=== PATIENT | female | born 1955 | race Caucasian/White ===

== ENCOUNTER 2022-01-15 10:02 | Outpatient (CLI) | payer MEDICARE, BC, SELFPAY ==
--- NOTE | 2022-01-15 10:15 | CRLHL7_ITS ---
For Patients: As a result of the Century Cures Act, medical imaging exams and procedure reports are released immediately into your electronic medical record. You may view this report before your referring provider. If you have questions, please contact your health care provider. INDICATION: Dizziness and giddiness. TECHNIQUE: Brain and temporal bone MRI with contrast. The following sequences were obtained: DWI and ADC mapping sequences. Sagittal T1 weighted sequence. Axial FLAIR and HAN T2 weighted sequences of the whole brain. 3D T2-weighted CISS sequence of the temporal bones. Thin section T1 weighted axial and coronal pre-contrast and post-contrast sequences of the temporal bones. T1 weighted post-contrast sequence(s) of the whole brain. 15 cc of Dotarem gadolinium based contrast agent was used. COMPARISON : None. FINDINGS: The membranous labyrinths are normal in appearance, with no signal abnormality or malformation. No mass or pathologic enhancement within the internal auditory canals or the cerebellopontine angle cisterns. The cisternal and canalicular segments of the 7th/8th cranial nerve complexes are normal in appearance. The other imaged cranial nerve segments are normal in appearance. Brainstem and cerebellum are normal. No evidence of acute ischemia. No evidence of acute or chronic intracranial blood products. No mass or pathologic intracranial enhancement. Scattered FLAIR hyperintensities within the supratentorial white matter, typical for chronic microvascular ischemic changes. No hydrocephalus or extra-axial collections. The pituitary gland, parasellar structures and optic chiasm are normal. All the major intracranial vascular structures demonstrate normal flow-related signal. The orbital contents are normal. No calvarial or skull base marrow replacing process. No obstructive sinus disease. No extracranial soft tissue findings. IMPRESSION: 1. Normal appearance of the internal auditory pathways on high resolution imaging of the temporal bones. No mass or pathologic enhancement within the internal auditory canals or CPA cisterns. Normal appearance of the 7th/8th cranial nerves. 2. No acute infarction or other acute intracranial pathology. 3. No mass or pathologic intracranial enhancement. 4. Scattered chronic microvascular ischemic changes within the supratentorial white matter. Dictated by Zack Garces MD @ 01/15/2022 1:27:11 PM (Electronically Signed)
== END 2022-01-15 10:03 | disposition home or self-care (01) ==
LOC: MRI 10:06
PROVIDERS: Visit Provider Otolaryngology
DX: R42 Dizziness and giddiness (principal); I67.82 Cerebral ischemia
CPT/HCPCS: 70553; A9575

== ENCOUNTER 2022-08-05 10:30 | Outpatient (CLI) | payer MEDICARE, BC, SELFPAY ==
[2022-08-05 11:15] LABS: Hematocrit 43.1 % (33.0-51.0); Hemoglobin* 13.9 gm/dL (12.0-16.0); Mean Corpuscular HGB Conc 32 gm/dL (32-36); Mean Corpuscular Hemoglobin 27 pg (26-34); Mean Corpuscular Volume 84 fL (80-100); Platelet Count* 367 K/uL (140-440); Red Blood Count 5.11 m/uL (4.00-5.20); White Blood Count* 8.78 K/uL (4.50-11.00)
[2022-08-05 11:18] LABS: Slide Review Reflex No
[2022-08-05 11:26] LABS: Appearance Urine Clear (Clear); Bilirubin Urine Negative (Negative); Blood Urine Negative (Negative); Color Urine Yellow (Yellow); Glucose Urine Negative (Negative); Ketones Urine Negative (Negative); Leukocyte Esterase Urine Negative (Negative); Nitrite Urine Negative (Negative); Protein Urine Negative (Negative); Specific Gravity Urine <= 1.005 (1.000-1.030); Urobilinogen Urine 0.2 (0.2-1.0); pH Urine 6.5 (5.0-8.5)
[2022-08-05 11:30] LABS: Albumin* 4.5 g/dL (3.3-5.0); Chloride* 102 mmol/L (96-114)
[2022-08-05 11:31] LABS: Potassium* 4.4 mmol/L (3.6-5.1); Sodium* 137 mmol/L (135-149)
[2022-08-05 11:33] LABS: Alkaline Phosphatase* 69 U/L (40-150); Aspartate Amino Transferase* 22 U/L (12-35); Bilirubin Total* 0.6 mg/dL (0.1-1.5); Blood Urea Nitrogen* 11 mg/dL (7-30); Carbon Dioxide* 29 mmol/L (20-32); Cholesterol* 214 mg/dL (90-199); Creatinine* 0.6 mg/dL (0.5-1.5); Estimated Glomerular Filt Rate 99 ml/min
[2022-08-05 11:34] LABS: Alanine Aminotransferase* 26 U/L (4-35); Calcium* 8.8 mg/dL (8.4-10.6); Glucose* 128 mg/dL (60-115); HDL Cholesterol* 37 mg/dL (>=50); LDL Cholesterol Calculated 155 mg/dL (<100); Triglycerides* 109 mg/dL (40-149)
== END 2022-08-05 10:31 | disposition home or self-care (01) ==
PROVIDERS: PCP Physician Assistant Medical; Visit Provider Physician Assistant Medical
DX: I10 Essential (primary) hypertension (principal); R73.03 Prediabetes; E06.3 Autoimmune thyroiditis
CPT/HCPCS: 36415; 80053; 80061; 81003; 83036; 84439; 84443; 85027

== ENCOUNTER 2022-10-03 20:04 | Outpatient (CLI) | payer MEDICARE, BC, SELFPAY ==
--- NOTE | 2022-10-14 12:15 | W.PM.SLEEP ---
Sleep Study Details Details Interpreting Provider: Leah Date of Sleep Study: 10/03/22 Sleep Study Details: STUDY TYPE:? Home ? BMI:? 29.6 ORDERING PROVIDER:? Jorge INDICATION:? Concerns about sleep apnea ? SLEEP SUMMARY:? 519 minutes monitored RESPIRATORY SUMMARY:? AHI 16.5, supine 19.5, left lateral 10.8, right lateral 5.6 Low oxygen 78 30.3% of study oxygen less than 90% Snoring 9.1% PERIODIC LIMB MOVEMENTS OF SLEEP:? Not recorded in home study CARDIAC:? Range 59-92, mean 71.8 IMPRESSION:? Moderate obstructive sleep apnea with supine position dependency Significant desaturation more than would be expected for this level of apnea RECOMMENDATION: Either in-lab titration or AutoSet CPAP pressure 4-17. A dental appliance may be a potential option as well. Once effective therapy is established overnight oximetry study should be performed due to the patient's hypo oxygenation during this study. Further cardiopulmonary evaluation may be indicated.
== END 2022-10-03 20:05 | disposition home or self-care (01) ==
LOC: SLEEP 20:08
PROVIDERS: PCP Physician Assistant Medical; Visit Provider Physician Assistant Medical
DX: Z01.818 Encounter for other preprocedural examination (principal); E11.9 Type 2 diabetes mellitus without complications; I10 Essential (primary) hypertension; E06.3 Autoimmune thyroiditis
CPT/HCPCS: 36415; 80048; 83036; 84443; 85027; 95806

== ENCOUNTER 2022-12-24 12:50 | Outpatient (CLI) | payer MEDICARE, BC, SELFPAY ==
--- NOTE | 2022-12-24 13:00 | CRLHL7_ITS ---
For Patients: As a result of the Century Cures Act, medical imaging exams and procedure reports are released immediately into your electronic medical record. You may view this report before your referring provider. If you have questions, please contact your health care provider. INDICATION: Lung cancer screening. History of smoking. High risk patient with greater than 25 pack-year smoking history. TECHNIQUE: Low-dose lung cancer screening non-contrast CT chest. Dose reduction techniques were used. COMPARISON: None. FINDINGS: NODULES: 1.2 cm calcified nodule within the right upper lobe. Perifissural nodule right upper lobe measuring 5.8 millimeters, . 5.2 millimeter nodule left lower lobe, . LUNGS AND PLEURA: Dependent scarring bilaterally, mild. Mild emphysematous changes. MEDIASTINUM: Calcified right hilar lymph nodes. CORONARY ARTERY CALCIFICATION: Mild. LIMITED UPPER ABDOMEN: Fatty infiltration of the liver. MUSCULOSKELETAL: Normal. IMPRESSION: 5.2 millimeter noncalcified nodule left lower lobe. Additional calcified nodule within the right upper lobe considered benign. Probably calcified right perifissural nodule. LUNG-RADS CATEGORY: 2: Benign. RADIOLOGIST RECOMMENDATION: Continue annual screening with low-dose CT chest in 12 months. Please note that all CT scans at this facility use dose modulation, iterative reconstruction, and/or weight-based dosing when appropriate to reduce radiation dose to as low as reasonably achievable. Dictated by Tonio Aldana MD @ 12/25/2022 12:06:21 PM (Electronically Signed)
== END 2022-12-24 12:51 | disposition home or self-care (01) ==
LOC: CT 12:50
PROVIDERS: PCP Physician Assistant Medical; Visit Provider Physician Assistant Medical
DX: Z12.2 Encounter for screening for malignant neoplasm of respiratory organs (principal); R91.1 Solitary pulmonary nodule; Z87.891 Personal history of nicotine dependence
CPT/HCPCS: 71271

== ENCOUNTER 2023-02-27 07:50 | Day surgery (SDC) | payer MEDICARE, BC, SELFPAY ==
[2023-02-27] VITALS (14 sets, daily range): BP systolic 133–188; BP diastolic 85–106; PULSE 84–101; RESP 12–16; TEMP 36.1–36.7; O2SAT 93–99; BMI 29.8
[2023-02-27] MEDS: LACTATED RINGERS 1000 ML 1,000 ML 100 ML IV (07:55)
[2023-02-27] MEDS: OXYMETAZOLINE 0.05% NASAL SPRAY 2 SPRAY NOSTRIL-B (08:30)
[2023-02-27] MEDS: SODIUM CHLORIDE 0.9 % (FLUSH) 10 ML SYRINGE IVF (08:59)
--- NOTE | 2023-02-27 09:56 | W.ANESCHARGE ---
Anesthesia Charges Start Date/Time Anesthesia Start Date: 02/27/23 Anesthesia Start Time: 09:48 Stop Date/Time Anesthesia Stop Date: 02/27/23 Anesthesia Stop Time: 10:19
[2023-02-27] MEDS: BUPIVACAINE 0.5 %/EPI 1:200K 30 ML INJECTION (10:04)
[2023-02-27] MEDS: COCAINE HCL 4 % 4 ML SOLUTION NOSTRIL-B (10:04)
--- NOTE | 2023-02-27 10:19 | W.ANESCHARGE ---
Anesthesia Charges Start Date/Time Anesthesia Start Date: 02/27/23 Anesthesia Start Time: 09:48 Stop Date/Time Anesthesia Stop Date: 02/27/23 Anesthesia Stop Time: 10:19
[2023-02-27] MEDS: AYR SALINE NASAL GEL 1 APPLIC NOSTRIL-B ×2 (10:23)
--- NOTE | 2023-02-27 10:27 | PC.NURSE ---
IV patent and running. no complications noted.
[2023-02-27] MEDS: ACETAMINOPHEN 325 MG TABLET 650 MG PO (11:40)
[2023-02-27] MEDS: ONDANSETRON 2 MG/ML inj 4 MG IVP (11:40)
--- NOTE | 2023-02-27 12:08 | SUR.PHASEII ---
1140: Patient states pain 07/11. She would like tylenol. [employer] stated it may contain lactose. Patient verbalizes understanding and states she'll deal with it.
--- NOTE | 2023-02-27 12:17 | P.ENTPROC_ITS ---
Procedure Note Date of procedure: 02/27/23 Procedure: Preoperative diagnosis nasal obstruction, inferior turbinate hypertrophy, right middle turbinate ruth bullosa, nasal headache Postoperative diagnosis same Procedure endoscopic partial resection right middle turbinate ruth bullosa, submucous partial resection inferior turbinate bilateral Under general trach anesthesia patient was prepped and draped usual fashion nose injected and decongested. A stab incision was made in the anterior head of the right inferior turbinate a tunnel created with a [place] dissector. The ruth bone was outfractured and a conservative anterior submucous resection performed with Juan forceps. The Coblation Wand was then used to cauterize intramurally along the inferior 10%. This was repeated on the left side in identical fashion. The right middle turbinate was incised along its lateral aspect overlying the hollow portion. The bone was infractured and the turbinate crushed with the [place] forceps. The left middle turbinate was also crushed. Merocel packing coated in Bactroban was placed in each middle meatal region. The patient procedure was taken recovery in satisfactory condition. Blood loss less than 20 mL. Surgeon: Robin Hubbard MD
== END 2023-02-27 12:26 | disposition home or self-care (01) ==
LOC: OR 07:51
PROVIDERS: PCP Physician Assistant Medical; Visit Provider Otolaryngology
PROC: 09SL4ZZ Reposition Nasal Turbinate, Percutaneous Endoscopic Approach (ICD-10-PCS; CPT 30999; principal; 2023-02-27 09:15)
DX: J34.3 Hypertrophy of nasal turbinates (principal); J34.89 Other specified disorders of nose and nasal sinuses; R51.9 Headache, unspecified
CPT/HCPCS: 31240; 30140; 00160; 82962; A9270; J0330; J1100; J2405; J2704; J3010; J3490; J7120

== ENCOUNTER 2023-03-06 15:00 | Outpatient (CLI) | payer MEDICARE, BC, SELFPAY | END 2023-03-06 15:01 | disposition home or self-care (01) | LOC: NFLDREF 03-10 16:23 | PROVIDERS: PCP Physician Assistant Medical; Referring Provider Physician Assistant Medical; Visit Provider Otolaryngology | DX: Z01.818 Encounter for other preprocedural examination (principal); E06.3 Autoimmune thyroiditis; E11.9 Type 2 diabetes mellitus without complications; E55.9 Vitamin D deficiency, unspecified | CPT/HCPCS: 82306; 82607; 83036; 84439; 84443; 84481; 85027 ==

== ENCOUNTER 2023-07-06 11:34 | Outpatient (CLI) | payer MEDICARE, BC, SELFPAY | END 2023-07-06 11:35 | disposition home or self-care (01) | LOC: NFLDREF 07-08 07:35 | PROVIDERS: PCP Physician Assistant Medical; Referring Provider Physician Assistant Medical; Visit Provider Physician Assistant Medical | DX: E11.9 Type 2 diabetes mellitus without complications (principal); Z79.4 Long term (current) use of insulin | CPT/HCPCS: 82043; 82570 ==

== ENCOUNTER 2023-07-13 10:00 | Outpatient (CLI) | payer MEDICARE, BC, SELFPAY | END 2023-07-13 10:01 | disposition home or self-care (01) | PROVIDERS: PCP Physician Assistant Medical; Visit Provider Physician Assistant Medical | DX: E11.9 Type 2 diabetes mellitus without complications (principal) | CPT/HCPCS: 86341 ==

== ENCOUNTER 2023-10-14 13:57 | Outpatient (CLI) | payer MEDICARE, BC, SELFPAY ==
--- NOTE | 2023-10-14 14:00 | XR_ITS ---
Patient: MARION TORRES Facility:?[facility] Patient ID:?[id number] Site Patient ID:?[id number]. Site :?[id number] Study:?DEXA-Bone Density -10/14/2023 2:41:50 PM Ordering Physician:ZAID Final Report: DXA BONE MINERAL DENSITY STUDY Reason for exam: Asymptomatic menopausal state. Current height (in): 67. Weight (lb): 190. Menopause age: 42. Ethnicity: White. 1. Have you had a previous hip or vertebral fracture? No. 2. Have you had any fractures during your adult life which did not result from significant trauma (e.g., auto accident)? No. 3. Did either of your parents have a hip fracture? Yes. 4. Do you smoke? No. 5. Have you ever taken Glucocorticoids? No. 6. Do you have rheumatoid arthritis? No. 7. Do you have secondary osteoporosis? No. 8. Do you drink 3 or more alcoholic drinks per day? No. 9. Are you being treated for osteoporosis? No. 10. Have you ever taken any of the following medications: Actonel, Evista, Fosamax, Miacalcin, Reclast, Boniva, Forteo, HRT (i.e., estrogen/hormone therapy), Protelos, Prolia, Vitamin D, Calcium, other ? please specify. ANSWER: Yes, vitamin D and calcium. 11. Do you have any of the following medical conditions: Anorexia or bulimia, asthma or emphysema, end stage renal disease, hyperparathyroidism, any seizure disorders, cancer, inflammatory bowel diseases, hysterectomy, other ? please specify. ANSWER: Yes, hysterectomy. 12. What was your maximum height (inches)? 67. 13. Do you perform weight bearing exercise regularly? Yes. 14. Do you regularly consume dairy products? Yes. 15. Do you drink caffeinated beverages? Yes. 16. At what age did your period start? 12. 17. Are you premenopausal? No. 18. How many full-term pregnancies have you had? 3. 19. Have you ever missed your period for more than 6 months in a row (not including or menopause)? No. TECHNIQUE: Bone mineral density study was performed using the Yuanfen~Flow™. FINDINGS: The results of the study expressed as bone mineral density (BMD) are as follows: Lumbar spine L1 to L4: BMD: 1.001 g/cm2. T-score: -0.4. Z-score: 1.6 Neck Left: BMD: 0.865 g/cm2. T-score: 0.1. Z-score: 1.8 Right: BMD: 0.806 g/cm2. T-score: -0.4. Z-score: 1.3 Total Left: BMD: 0.989 g/cm2. T-score: 0.4. Z-score: 1.8 Right: BMD: 0.961 g/cm2. T-score: 0.2. Z-score: 1.6 IMPRESSION: Normal bone density. Tonio Aldana M.D. Diagnostic Radiologist [email or web address] EVIN/katy D& Transcribed: 6:03 p.mKitty burns/Dictated by: Tonio Aldana MD @ 10/15/2023 11:12:00 AM Signed by:?Tonio Aldana MD @10/16/2023 5:36:01 AM (Electronic Signature)
== END 2023-10-14 13:58 | disposition home or self-care (01) ==
LOC: RAD 13:58
PROVIDERS: PCP Physician Assistant Medical; Visit Provider Physician Assistant Medical
DX: Z13.820 Encounter for screening for osteoporosis (principal); Z78.0 Asymptomatic menopausal state; Z79.890 Hormone replacement therapy
CPT/HCPCS: 77080

== ENCOUNTER 2023-12-28 10:46 | Outpatient (CLI) | payer MEDICARE, BC, SELFPAY ==
--- NOTE | 2023-12-28 11:00 | CRLHL7_ITS ---
For Patients: As a result of the Century Cures Act, medical imaging exams and procedure reports are released immediately into your electronic medical record. You may view this report before your referring provider. If you have questions, please contact your health care provider. INDICATION: Lung cancer screening. History of smoking. TECHNIQUE: Low-dose lung cancer screening non-contrast CT chest. Dose reduction techniques were used. COMPARISON: 12/24/2022 FINDINGS: NODULES: Calcified nodule right upper lobe unchanged. Stable perifissural nodule on the right measuring 6 millimeters, . Stable nodule within the left lower lobe measuring 5 millimeters, . LUNGS AND PLEURA: Stable incidental extrapleural thickening at the left lateral lung base. Mild dependent areas of scarring and patchy areas of atelectasis bilaterally. MEDIASTINUM: Calcified right hilar lymph nodes. CORONARY ARTERY CALCIFICATION: Mild. LIMITED UPPER ABDOMEN: Hepatic steatosis. MUSCULOSKELETAL: Normal. IMPRESSION: Stable bilateral pulmonary nodules. LUNG-RADS CATEGORY: 2: Benign. RADIOLOGIST RECOMMENDATION: Continue annual screening with low-dose CT chest in 12 months. Please note that all CT scans at this facility use dose modulation, iterative reconstruction, and/or weight-based dosing when appropriate to reduce radiation dose to as low as reasonably achievable. Dictated by Tonio Aldana MD @ 12/28/2023 11:51:32 AM (Electronically Signed)
== END 2023-12-28 10:47 | disposition home or self-care (01) ==
LOC: CT 10:47
PROVIDERS: PCP Physician Assistant Medical; Visit Provider Physician Assistant Medical
DX: Z12.2 Encounter for screening for malignant neoplasm of respiratory organs (principal); R91.8 Other nonspecific abnormal finding of lung field; Z87.891 Personal history of nicotine dependence
CPT/HCPCS: 71271

== ENCOUNTER 2024-01-11 10:48 | Outpatient (CLI) | payer MEDICARE, BC, SELFPAY ==
--- NOTE | 2024-01-11 12:08 | W.ANESCHARGE ---
Anesthesia Charges Start Date/Time Anesthesia Start Date: 01/11/24 Anesthesia Start Time: 11:40 Stop Date/Time Anesthesia Stop Date: 01/11/24 Anesthesia Stop Time: 12:49
--- NOTE | 2024-01-11 12:50 | W.ANESCHARGE ---
Anesthesia Charges Start Date/Time Anesthesia Start Date: 01/11/24 Anesthesia Start Time: 11:40 Stop Date/Time Anesthesia Stop Date: 01/11/24 Anesthesia Stop Time: 12:49
== END 2024-01-11 10:49 | disposition home or self-care (01) ==
LOC: OP CLINIC 10:48
PROVIDERS: PCP Physician Assistant Medical; Visit Provider Surgery
DX: Z12.11 Encounter for screening for malignant neoplasm of colon (principal); K63.5 Polyp of colon; K62.1 Rectal polyp; K64.4 Residual hemorrhoidal skin tags; K21.9 Gastro-esophageal reflux disease without esophagitis
CPT/HCPCS: 00813; 43239; 45385; 88302; 88305; J2704

== ENCOUNTER 2024-05-09 17:57 | Outpatient (CLI) | payer MEDICARE, BC, SELFPAY | END 2024-05-09 17:58 | disposition home or self-care (01) | LOC: AMB 05-13 02:43 | PROVIDERS: PCP Physician Assistant Medical; Visit Provider Family Medicine | DX: R53.1 Weakness (principal); R50.9 Fever, unspecified; R51.9 Headache, unspecified | CPT/HCPCS: A0425; A0427 ==

== ENCOUNTER 2024-05-09 18:33 | Emergency (ER) | payer MEDICARE, BC, SELFPAY ==
[2024-05-09 18:39] VITALS: BP 133/80; PULSE 121; RESP 20; TEMP 38.6; O2SAT 91; BMI 24.3
[2024-05-09 19:00] VITALS: PULSE 120; O2SAT 91
[2024-05-09 19:15] VITALS: PULSE 122; RESP 18; O2SAT 92
[2024-05-09] MEDS: IBUPROFEN 400 MG TABLET 600 MG PO (19:20)
[2024-05-09 19:24] VITALS: BP 133/78; PULSE 120; O2SAT 94
[2024-05-09 19:30] VITALS: PULSE 118; O2SAT 91
[2024-05-09 19:43] LABS: PCR FLU A POSITIVE PCR FLU A (Negative); PCR FLU B Negative PCR FLU B (Negative); PCR RSV Negative PCR RSV (Negative); SARS PCR* Negative SARS-CoV-2 (Negative)
--- NOTE | 2024-05-09 19:56 | ED_ITS ---
HPI - General Adult General Chief complaint: Fever Stated complaint: Flu symptoms Time Seen by Provider: 05/09/24 18:35 Source: patient Mode of arrival: ambulatory Limitations: no limitations History of Present Illness HPI narrative: 68-year-old female presenting today with 2 days of cough, fever and body aches. No sick contacts that she is aware. Episode of diarrhea yesterday. She does not feel short of breath. She does have mild intermittent asthma and has not had to use her inhaler in quite some time. She feels nauseated but has not vomited. Able to drink plenty of fluids without difficulty. She does have a history of type 2 diabetes that is well managed. Related Data Home Medications ?Medication ?Instructions ?Recorded ?Confirmed epinephrine 0.3 mg/0.3 mL 0.3 ml IM PRN 07/02/22 02/22/24 injection, auto-injector P-Thyroid PO QDAY 06/18/23 02/22/24 estradiol 0.05 mg/24 hr semiweekly 1 patch transdermal 2XW 06/18/23 02/22/24 transdermal patch aspirin 81 mg tablet,delayed 81 mg PO QDAY 03/03/24 03/03/24 release (Adult Low Dose Aspirin) Previous Rx's ?Medication ?Instructions ?Recorded albuterol sulfate 90 mcg/actuation 2 puff inhalation Q4-6H PRN 04/28/22 aerosol inhaler shortness of breath or wheezing #6.7 grams ondansetron HCl 4 mg tablet 4 mg PO Q6H PRN nausea and 08/04/22 vomiting #10 tabs flash glucose scanning reader #1 ea 09/03/22 (FreeStyle Jewels 2 [place]) progesterone micronized 100 mg 100 mg PO DAILY #90 caps 11/27/22 capsule flash glucose sensor (FreeStyle #6 ea 04/17/23 Jewels 2 Sensor kit) losartan 50 mg tablet 50 mg PO QDAY #90 tabs 06/18/23 pen needle, diabetic 31 gauge x #100 ea 07/06/2306/04 (1st Tier Unifine Pentips) albuterol sulfate 2.5 mg/3 mL 2.5 mg (3 mL) continuous 09/01/23 (0.083 %) solution for nebulization nebulization Q6H PRN shortness of breath or wheezing #90 mL tirzepatide 12.5 mg/0.5 mL 12.5 mg (0.5 mL) subcut QWEEK #6 mL 04/11/24 subcutaneous pen injector (Imani) Allergies Allergy/AdvReac Type Severity Reaction Status Date / Time azithromycin Allergy Severe Anaphylaxis Verified 05/09/24 18:44 lactose Allergy Intermediate Difficulty Verified 05/09/24 18:44 Breathing latex Allergy Unknown itching, Verified 05/09/24 18:44 inflamation nickel Allergy Unknown Rash Verified 05/09/24 18:44 propylene glycol Allergy Unknown Rash Verified 05/09/24 18:44 Vanilla Allergy Intermediate Difficulty Uncoded 03/03/24 11:53 Breathing Review of Systems Status of ROS: Reports: 10 or more systems reviewed and unremarkable except as noted in History and below [facility] Medical History Surgical wound dehiscence ?T81.31XA - Disruption of external operation (surgical) wound, not elsewhere classified, initial encounter (ICD-10) History of deviated nasal septum ?Z87.09 - Personal history of other diseases of the respiratory system (ICD- 10) COVID-19 (~03/21/23) ?U07.1 - COVID-19 (ICD-10) Mild intermittent asthma ?J45.20 - Mild intermittent asthma, uncomplicated (ICD-10) Ocular migraine ?G43.109 - Migraine with aura, not intractable, without status migrainosus (ICD-10) 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) Surgical History History of Achilles tendon repair (07/09/23) ?Z98.890 - Other specified postprocedural states (ICD-10) Hx of esophagogastroduodenoscopy ?Z98.890 - Other specified postprocedural states (ICD-10) Hx of knee surgery ?Z98.890 - Other specified postprocedural states (ICD-10) History of surgery on left wrist ?Z98.890 - Other specified postprocedural states (ICD-10) History of arthroscopy of both knees ?Z98.890 - Other specified postprocedural states (ICD-10) History of bladder surgery ?Z98.890 - Other specified postprocedural states (ICD-10) Hx of hysterectomy ?Z90.710 - Acquired absence of both cervix and uterus (ICD-10) Hx of sinus surgery (~2022) ?Z98.890 - Other specified postprocedural states (ICD-10) Family History Mother Alzheimers disease High blood pressure High cholesterol Rheumatoid arthritis Daughter Diabetes PCOS (polycystic ovarian syndrome) Father Lung cancer COPD (chronic obstructive pulmonary disease) Diabetes Alcohol dependence Paternal Grandmother Diabetes Brother Throat cancer Sister Esophageal cancer Sister Cervical cancer Social History Narrative: . 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 Alert and oriented. Answers questions appropriately. Mood and affect are appropriate. Thoughts are goal oriented and rational. No tangential or magical thinking noted. Patient speaks in full sentences without needing to catch her breath. Febrile. HEENT: Normocephalic atraumatic. Pupils are equally round reactive to light. Extraocular muscles are intact. Conjunctivae are moist without any icterus noted, mild injection bilaterally. Moist mucous membranes. Neck is soft. Cardiovascular: Heart is regular rhythm S1 and S2 are present without any murmurs. Tachycardic. Lungs: Clear to auscultation bilaterally no wheezes rhonchi or rales are appr eciated. Patient takes deep breaths without any discomfort. Abdomen: Soft and nontender nondistended with normal bowel sounds. Skin: Well perfused without any obvious rashes. Const: Vital Signs, click to edit/add: Vital Signs - 24 hr 05/09/24 18:39 05/09/24 19:00 05/09/24 19:15 Temperature 101.4 F H Pulse Rate 120 H 122 H Pulse Rate [Right Pulse Oximeter] 121 H Respiratory Rate 20 18 Blood Pressure Blood Pressure [Le ft Upper Arm] 133/80 Pulse Oximetry 91 91 92 Oxygen Delivery Me thod Room Air 05/09/24 19:24 05/09/24 19:30 Temperature Pulse Rate 120 H 118 H Pulse Rate [Right Pulse Oximeter] Respiratory Rate Blood Pressure 133/78 Blood Pressure [Le ft Upper Arm] Pulse Oximetry 94 91 Oxygen Delivery Me thod Course Course ED Course: Triple swab positive for influenza A. Patient given ibuprofen while she was here. Vital Signs Vital signs: Initial Vital Signs Temperature 101.4 F H 05/09/24 18:39 Temperature Source Temporal Artery Scan 05/09/24 18:39 Pulse Rate 121 H 05/09/24 18:39 Pulse Rhythm Regular 05/09/24 18:39 Pulse Strength 3+ Normal 05/09/24 18:39 Respiratory Rate 20 05/09/24 18:39 Blood Pressure 133/80 05/09/24 18:39 Blood Pressure Mean 97 05/09/24 18:39 Blood Pressure Position Semi-Fowlers 05/09/24 18:39 Pulse Oximetry 91 05/09/24 18:39 Oxygen Delivery Method Room Air 05/09/24 18:39 Vital Signs Temperature 101.4 F H 05/09/24 18:39 Pulse Rate 121 H 05/09/24 18:39 Respiratory Rate 20 05/09/24 18:39 Blood Pressure 133/80 05/09/24 18:39 Pulse Oximetry 91 05/09/24 18:39 Oxygen Delivery Method Room Air 05/09/24 18:39 Temperature 101.4 F H 05/09/24 18:39 Pulse Rate 118 H 05/09/24 19:30 Respiratory Rate 18 05/09/24 19:15 Blood Pressure 133/78 05/09/24 19:24 Pulse Oximetry 91 05/09/24 19:30 Oxygen Delivery Method Room Air 05/09/24 18:39 Medications Administered Medications: Discontinued Medications Generic Name Dose Route Start Last Admin Trade Name Freq PRN Reason Stop Dose Admin Ibuprofen 600 mg 05/09/24 18:50 05/09/24 19:20 Ibuprofen 400 Mg Tablet PO 05/09/24 18:51 600 mg ONCE ONE Administration Medical Decision Making MDM Narrative Medical decision making narrative: 68-year-old female with influenza a. Discussed increasing daily fluid intake, using ibuprofen and/or Tylenol as needed/as directed. We discussed Tamiflu and patient declines at this time. Lab Data Lab results reviewed: Yes I reviewed the patient's lab results Labs: Lab Results 05/09/24 Range/Units 18:56 SARS-CoV-2 (PCR) Negative SARS-CoV-2 (Negative) Influenza Type A (PCR) POSITIVE PCR FLU A A (Negative) Influenza Type B (PCR) Negative PCR FLU B (Negative) RSV (PCR) Negative PCR RSV (Negative) Discharge Plan Discharge Clinical Impression: Influenza A Patient Disposition: Home, Self-Care Condition: Stable Instructions: Influenza (ED), Droplet Precautions (ED) Prescriptions: No Action epinephrine 0.3 mg/0.3 mL auto-injector 0.3 ml IM PRN Patient Comments: INJECT INTO THE THIGH MUSCLE NEEDED FOR ANAPHYLAXIS (DME) FreeStyle Jewels 2 [place] Misc See Rx Instructions .Route Qty: 1 0RF Rx Instructions: As directed; daily for diabetes aspirin [Adult Low Dose Aspirin] 81 mg tablet,delayed release (DR/EC) 81 mg PO QDAY albuterol sulfate 90 mcg/actuation HFA aerosol inhaler 2 puff inhalation Q4-6H PRN (Reason: shortness of breath or wheezing) Qty: 6.7 0RF ondansetron HCl 4 mg tablet 4 mg PO Q6H PRN (Reason: nausea and vomiting) Qty: 10 3RF estradiol 0.05 mg/24 hr patch semiweekly 1 patch transdermal 2XW Rx Instructions: apply 1 patch for 3 days alternating with 1 patch for 4 days each week for 3 wks per 4-wk cycle P-Thyroid PO QDAY Patient Comments: [facility] - [place], [place] Ph#: [phone] [employer] Rx Instructions: 1.75 grain to daily losartan 50 mg tablet 50 mg PO QDAY Qty: 90 3RF Rx Instructions: once daily for blood pressure progesterone micronized 100 mg capsule 100 mg PO DAILY Qty: 90 0RF (DME) FreeStyle Jewels 2 Sensor Kit See Rx Instructions .Route Qty: 6 0RF Rx Instructions: As directed; daily for diabetes (DME) pen needle, diabetic [1st Tier Unifine Pentips] 31 gauge x 1/4 needle See Rx Instructions .Route Qty: 100 3RF Rx Instructions: once daily with insulin albuterol sulfate 2.5 mg /3 mL (0.083 %) solution for nebulization 2.5 mg continuous nebulization Q6H PRN (Reason: shortness of breath or wheezing) Qty: 90 2RF Mounjaro 12.5 mg/0.5 mL pen injector 12.5 mg subcut QWEEK Qty: 6 1RF Follow Up/Referrals: Yojana Patel PA-C [Primary Care Provider] - Stand Alone Forms: [employer] Info Instructions
[2024-05-09 20:12] VITALS: TEMP 38
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
--- OUTSIDE RECORDS SUMMARY | 2024-05-11 20:13 | XMS_ITS | Encounter Summary ---
Author Name [facility] [place] Organization [facility] Address [address] [place] [address] Insurance Providers: All historical and current Section [...] PART B Jan 30, 2021 PART B [id number] MARION TORRES PATIENT MEDICARE (WNR) MEDICARE (M) PART A Jul 30, 2020 PART A [id number] BRIANMILDREDLISHA MARION PATIENT Selected Encounter This section includes the information on [place] at [place] for the Encounter. Date/Time Encounter Type Encounter Description Reason Provider Source Aug 27, 2023 10:00 AM FAMILY PSYTX W/O PT 50 MIN PM&RS PHYSICIAN ICD-10-CM Z71.89 Other specified counseling ELIEZER ANN Owen Encounter Template Text not used by [place] Assessments - Encounter Diagnoses This section includes the primary and secondary diagnoses documented for the Encounter. Date/Time Primary/Secondary Diagnosis Diagnosis Name Provider Source Aug 28, 2023 09:49 AM PRIMARY Other specified counseling ELIEZER ANN [facility] Plan of Treatment: Future Appointments (+ [...] The data comes from all [place] treatment [facility]. Appointment Date/Time Appointment Type Appointme nt Facility Name Sep 10, 2023 10:00 AM AMBULATORY - REHAB MEDICIN E [facility] October 07, 2023 10:00 AM AMBULATORY - REHAB MEDICIN E [facility] October 28, 2023 09:00 AM AMBULATORY - REHAB MEDICIN E [facility] Nov 11, 2023 10:00 AM AMBULATORY - REHAB MEDICIN E [facility] Dec 24, 2023 10:00 AM AMBULATORY - REHAB MEDICIN E [facility] Jan 14, 2024 10:00 AM AMBULATORY - REHAB MEDICIN E [facility] Jan 28, 2024 09:00 AM AMBULATORY - REHAB MEDICIN E [facility] Jan 29, 2024 05:00 PM AMBULATORY - REHAB MEDICIN E [facility] Feb 17, 2024 10:00 AM AMBULATORY - REHAB MEDICIN E [facility] Encounter Notes: All associated encounter notes This section contains the clinical notes associated to the Encounter. Date/Time Encounter Note(s) Provider Source Aug 27, 2023 10:00 AM PHYSICAL MEDICINE REHAB NOTE: LOCAL TITLE: REHAB PSYCHOLOGY PROGRESS NOTE STANDARD TITLE: PHYSICAL MEDICINE REHAB NOTE DATE OF NOTE: AUG 27, 2023@10:00 ENTRY DATE: AUG 28, 2023@09:43:55 AUTHOR: ELIEZER ANN EXP COSIGNER: URGENCY: STATUS: COMPLETED Rehab Psychology Family Support session [facility] contact: 55 Minutes Visit conducted by synchronous telehealth. Caregiver's verbal consent obtained. Location/emergency number confirmed. Environment surveyed and all participants identified. Virtual conference room locked. SESSION CONTENT: Today primarily focused on healthy boundary setting and maintaining boundaries. We continue to discuss how Caregiver's injury (complete rupture of her Achilles tendon) is currently impacting her ability to provide caregiver support for her son and how this has impacted relationships and stress in the household. We continue to work on how this has forced her to address longstanding issues related to her ability to establish and maintain healthy boundaries (I'm learning all the ways to say No.), as well as cognitive distortions re: self-care. Size Tester also continues to challenge caregiver to: be in the moment/present-centered (always in my head 5 steps ahead); focus on self vs. others; and be intentional re: what she can do. Caregiver to identify and prioritize lifestyle changes she would like to make and journal about pros and cons of these for next time. Size Tester continues to offer support while caregiver processes her thoughts and emotions related to ambiguous loss and caregiver burnout, as well as what she can do to reduce burden and cope effectively with stressors. Mood remains dysphoric and anxious w/ small decrease in the frequency, intensity, and duration of symptoms reported by caregiver. NO SI. Affect congruent with mood and topic of conversation. IMPRESSIONS: Other Specified Counseling Depressive D/O, Unspecified, per history PLAN: Size Tester will continue to follow to provide CBT for adjustment and caregiver support. RTC order entered for f/u in 2-3 weeks NEXT TREATEMENT PLAN REVIEW DATE: 01/09/24 [...] of belonging/identity -Good self-esteem -Employed -Evidence of cultural/spiritual/adventism beliefs about value of life -Able to [...] Eliezer Ann, Ph.D., L.P. Rehabilitation Psychologist Signed: 08/28/2023 09:49 ELIEZER ANN [facility]
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
--- OUTSIDE RECORDS SUMMARY | 2024-05-11 20:17 | XMS_ITS | Encounter Summary ---
Author Name [facility] [place] Organization [facility] Address [address] [place] [address] Insurance Providers: All historical and current Section [...] PART B Jan 30, 2021 PART B [id number] MARION TORRES PATIENT MEDICARE (WNR) MEDICARE (M) PART A Jul 30, 2020 PART A [id number] BRIANMILDREDLISHA MARION PATIENT Selected Encounter This section includes the information on record at [place] for the Encounter. Date/Time Encounter Type Encounter Description Reason Provider Source Jan 28, 2024 09:00 AM FAMILY PSYTX W/O PT 50 MIN PM&RS PHYSICIAN ICD-10-CM Z71.89 Other specified counseling ELIEZER ANN Owen Encounter Template Text not used by [place] Assessments - Encounter Diagnoses This section includes the primary and secondary diagnoses documented for the Encounter. Date/Time Primary/Secondary Diagnosis Diagnosis Name Provider Source Jan 29, 2024 10:29 AM PRIMARY Other specified counseling ELIEZER ANN [facility] Plan of Treatment: Future Appointments (+ 6 months) and Future Tests (+/- 45 days) The Plan of Treatment section includes future care activities for the patient from all [place] treatmentfacilities. This section includes future appointments and future orders which are active, pending or scheduled. Future Appointments This section includes appointments that were scheduled to occur 6 months from the date of the Encounter, up to a maximum of 20 appointments. The data comes from all [place] treatment [facility]. Appointment Date/Time Appointment Type Appointme nt Facility Name Jan 29, 2024 05:00 PM AMBULATORY - [facility] Feb 17, 2024 10:00 AM [facility]ORY [facility] Mar 03, 2024 09:00 AM [facility]ORY [facility] Mar 09, 2024 12:00 PM [facility]ATORY - [facility] Mar 18, 2024 05:00 PM AMBULATORY - [facility] Encounter Notes: All associated encounter notes This section contains the clinical notes associated to the Encounter. Date/Time Encounter Note(s) Provider Source Jan 28, 2024 09:00 AM PHYSICAL MEDICINE REHAB NOTE: LOCAL TITLE: REHAB PSYCHOLOGY PROGRESS NOTE STANDARD TITLE: PHYSICAL MEDICINE REHAB NOTE DATE OF NOTE: JAN 28, 2024@09:00 ENTRY DATE: JAN 29, 2024@10:23:11 AUTHOR: ELIEZER ANN EXP COSIGNER: URGENCY: STATUS: COMPLETED Rehab Psychology Family Support session VVC contact: 60 Minutes Visit conducted by synchronous telehealth. Caregiver's verbal consent obtained. Location/emergency number confirmed. Environment surveyed and all participants identified. Virtual conference room locked. SESSION CONTENT: This session focused on caregiver's: health and wellness/self-care; relationships; developing and maintaining healthy boundaries; and effective communication strategies (specifically tone, volume, and word choices). She continues to improve/better manage communication w/ family members and work towards clarifying roles (wants to spend more time as grandma vs. co-parenting and working to decrease codependent/enabling relationship w/ Mela). Goal to monitor and note difficult communications/interactions for us to discuss more next session. We continue to discuss how the stress of various roles and relationships impacts her physical and emotional well-being as well as her ability to manage the stress of caregiving. We continue to work on identifying, challenging, and changing cognitive distortions and challenging caregiver to: be in the moment/present- centered. Stay Cutter continues to offer support while caregiver processes her thoughts and emotions related to ambiguous loss and caregiver burnout, as well as what she can do to reduce burden and cope effectively with stressors. Mood is mildly dysphoric and anxious w/ no change in the frequency, intensity, or duration of symptoms reported by caregiver. NO SI. Affect congruent with mood and topic of conversation. IMPRESSIONS: Other Specified Counseling Depressive D/O, Unspecified, per history PLAN: Stay Cutter will continue to follow to provide CBT [...] of belonging/identity -Good self-esteem -Employed -Evidence of cultural/spiritual/voodoo beliefs about value of life -Able to [...] Eliezer Ann, Ph.D., L.P. Rehabilitation Psychologist Signed: 01/29/2024 10:29 ELIEZER ANN [facility]
--- OUTSIDE RECORDS SUMMARY | 2024-05-11 20:17 | XMS_ITS | Encounter Summary ---
Author Name [facility] Organization [facility] Address [address] [place] [address] Insurance Providers: All historical and current Section [...] PART B Jan 30, 2021 PART B [id number] TANNA TORRES PATIENT MEDICARE (WNR) MEDICARE (M) PART A Jul 30, 2020 PART A [id number] BRIANMILDREDMARTIN HUSAINRY PATIENT Selected Encounter This section includes the information on record at [place] for the Encounter. Date/Time Encounter Type Encounter Description Reason Provider Source Mar 09, 2024 12:00 PM FAMILY PSYTX W/O PT 50 MIN PM&RS PHYSICIAN ICD-10-CM Z71.89 Other specified counseling ELIEZER MERAZ Owen Encounter Template Text not used by [place] Assessments - Encounter Diagnoses This section includes the primary and secondary diagnoses documented for the Encounter. Date/Time Primary/Secondary Diagnosis Diagnosis Name Provider Source Mar 10, 2024 05:05 PM PRIMARY Other specified counseling ELIEZER MERAZ [facility] Plan of Treatment: Future Appointments (+ 6 months) and Future Tests (+/- 45 days) The Plan of Treatment section includes future care activities for the patient from all [place] treatmentfacilities. This section includes future appointments and future orders which are active, pending or scheduled. Future Appointments This section includes appointments that were scheduled to occur 6 months from the date of the Encounter, up to a maximum of 20 appointments. The data comes from all [place] treatment facilities. Appointment Date/Time Appointment Type Appointme nt Facility Name Mar 18, 2024 05:00 PM AMBULATORY - REHAB [facility] Encounter Notes: All associated encounter notes This section contains the clinical notes associated to the Encounter. Date/Time Encounter Note(s) Provider Source Mar 09, 2024 12:00 PM PHYSICAL MEDICINE REHAB NOTE: LOCAL TITLE: REHAB PSYCHOLOGY PROGRESS NOTE STANDARD TITLE: PHYSICAL MEDICINE REHAB NOTE DATE OF NOTE: MAR 09, 2024@12:00 ENTRY DATE: MAR 10, 2024@16:54:36 AUTHOR: ELIEZER MERAZ EXP COSIGNER: URGENCY: STATUS: COMPLETED Rehab Psychology Caregiver Support session VVC contact: 50 Minutes Visit conducted by synchronous telehealth. Caregiver's verbal consent obtained. Location/emergency number confirmed. Environment surveyed and all participants identified. Virtual conference room locked. SESSION CONTENT: Caregiver (Tanna) expressing that stress, while still high, is more manageable at this time. She has had some productive conversations with her [facility] re: boundaries; hiring new box turner/caregivers; self-care; counseling for the kids; each of them getting additional MH support beyond [facility] caregiver support, and engagement in family counseling. Tanna clarified, there are no immediate concerns re: safety for anyone in the house and Tanna indicated that Dandy's care needs are being met. Supervisor Loading did encourage Tanna to reach out to Emergency Services if any safety concerns did arise for anyone in the home, to which she was in agreement with. Supervisor Loading also encouraged Tanna to consider discussing a respite stay for Dandy with [facility] while there is little client support administrator and so much stress in the home to reduce caregiver burden, which she is considering. Supervisor Loading reminded Tanna of the importance of self-care and utilizing her friends/support network, who can provide additional support during this time of increased stress, and she articulated plan to meet a friend for lunch 03/10. This session focused on caregiver's: health and [...] ability to manage the stress of caregiving. Mood reported as: stressed, exhausted, and she noted feeling trapped at times. She remains dysphoric and anxious w/ increase in the frequency, intensity, and duration of symptoms reported by caregiver. Affect was broad in range, tearful at times, and congruent with mood and topic of conversation. NO SI or HI reported. IMPRESSIONS: Other Specified Counseling Depressive D/O, Unspecified, per history PLAN: Supervisor Loading will continue to follow to provide CBT [...] of belonging/identity -Good self-esteem -Employed -Evidence of cultural/spiritual/sikhism beliefs about value of life -Able to [...] Eliezer Meraz, Ph.D., L.P. Rehabilitation Psychologist Signed: 03/10/2024 17:05 ELIEZER MERAZ [facility]
--- OUTSIDE RECORDS SUMMARY | 2024-05-11 20:17 | XMS_ITS | Encounter Summary ---
Author Name [facility] [place] Organization [facility] [place] [facility] [place] Address [address] [place] [id number] Insurance Providers: All historical and current Section [...] PART B Jan 30, 2021 PART B [id number] [phone] BRIANMILDREDMARION HUSAIN PATIENT MEDICARE (WNR) MEDICARE (M) PART A Jul 30, 2020 PART A [id number] MARION TORRES PATIENT Selected Encounter This section includes the information on record at [place] for the Encounter. Date/Time Encounter Type Encounter Description Reason Pro vider Source Mar 04, 2024 10:37 AM Outpatient Encounter PM&RS PHYSICIAN I[facility] Encounter Template Text not used by [place] Plan of Treatment: Future Appointments (+ 6 [...] The data comes from all [place] treatment facilities. Appointment Date/Time Appointment Type Appointme nt Facility Name Mar 09, 2024 12:00 PM AMBULATORY - REHAB [facility] Mar 18, 2024 05:00 PM AMBULATORY - REHAB [facility] Encounter Notes: All associated encounter notes This section contains the clinical notes associated to the Encounter. Date/Time Encounter Note(s) Provider Source Mar 04, 2024 10:37 AM REPORT OF CONTACT: LOCAL TITLE: APPOINTMENT SCHEDULING NOTE STANDARD TITLE: REPORT OF CONTACT DATE OF NOTE: MAR 04, 2024@10:37 ENTRY DATE: MAR 04, 2024@10:37:45 AUTHOR: ESTEFAYN MENDOZA EXP COSIGNER: URGENCY: STATUS: COMPLETED Attempted to schedule Return to clinic (RTC) Contact attempt made to [place] 1st attempt Telephone 2nd attempt Letter - Sent letter by regular [place] mail to address on file: MARION TORRES [id number] [address] [place], [place] [address] 3rd attempt Text message Left message on voice mail to call back to this number [phone] If calls back, schedule appt for: Activity: 03/03/2024 10:02 New Order entered by ELIEZER ANN (PSYCHOLOGIST) Order Text: Return to [facility] REHAB PSYCH MARISSA on or around ( Mar 08, 2024 ) for a total of 1 appointment(s) 60 min fu Nature of Order: ELECTRONICALLY ENTERED Elec Signature: ELIEZER ANN (PSYCHOLOGIST) on 03/03/2024 10:02 /kenia/ ESTEFANY MENDOZA MSA Signed: 03/04/2024 10:[address] [facility]
== END 2024-05-09 20:13 | disposition home or self-care (01) ==
PROVIDERS: Emergency Provider Family Medicine; PCP Physician Assistant Medical
DX: J10.1 Influenza due to other identified influenza virus with other respiratory manifestations (principal)
CPT/HCPCS: 87631; 99283; 99284; A9270

== ENCOUNTER 2024-09-05 08:48 | Outpatient (CLI) | payer MEDICARE, BC, SELFPAY ==
--- NOTE | 2024-09-13 12:23 | W.PM.SLEEP ---
Sleep Study Details Details Interpreting Provider: Haydee Sleep Study Details: STUDY TYPE:? Home unattended ? BMI:? Not recorded ORDERING PROVIDER:? Haydee INDICATION:? Concerned about sleep apnea SLEEP SUMMARY: 327 MINUTES MONITORED ? REPIRATORY SUMMARY:? AHI 6.4 per were CMS guidelines, 13.2 per rule 1A Low oxygen 80 17.7% of study oxygen less than 90% Snoring 96% PERIODIC LIMB MOVEMENTS OF SLEEP:? NOT RECORDED CARDIAC:? RANGE 57-111, MEAN 85.6 BEATS PER MINUTE IMPRESSION:? Mild obstructive sleep apnea with significant desaturations RECOMMENDATION: Treatment options include CPAP or dental appliance. Once effective therapy is established would recommend an overnight oximetry to verify that oxygenation is improved.
== END 2024-09-05 08:49 | disposition home or self-care (01) ==
LOC: SLEEP 09-20 08:48
PROVIDERS: PCP Physician Assistant Medical; Visit Provider Otolaryngology
DX: G47.33 Obstructive sleep apnea (adult) (pediatric) (principal)
CPT/HCPCS: 95806

== ENCOUNTER 2024-09-08 07:10 | Outpatient (CLI) | payer MEDICARE, BC, SELFPAY ==
--- NOTE | 2024-09-08 07:15 | CRLHL7_ITS ---
For Patients: As a result of the Cures Act, medical imaging exams and procedure reports are released immediately into your electronic medical record. You may view this report before your referring provider. If you have questions, please contact your health care provider. INDICATION: Hypertension; history of renal cyst. Comparison : None. TECHNIQUE: Ultrasound examination of the kidneys bilateral; duplex ultrasound evaluation renal arteries bilateral; color Doppler duplex assessment; Doppler spectral analysis. FINDINGS: The right kidney measures 10.8 x 5.2 x 6.4 cm and the left kidney measures 12 x 5.9 x 5.4 cm. No hydronephrosis. Normal echogenicity of the renal cortex bilaterally. Normal thickness of the renal cortex bilaterally measuring 2 cm on the right and 1.6 cm on the left. A 13.1 x 9.6 x 12.3 cm simple cortical cyst lower pole right kidney and 1.2 x 1.1 x 1.1 cm cyst lower pole left kidney. Single renal artery identified on each side. Peak systolic velocity within the juxtarenal abdominal aorta measures 86 cm/second, in the right renal artery 235 cm/second and in the left renal artery 156 cm/second with the calculated renal artery to aortic ratio of 2.7 on the right and 1.8 on the left. The acceleration indices and resistive indices are normal bilaterally. IMPRESSION: 1. No sonographic evidence for hemodynamically significant renal artery stenosis on either side. 2. A 13.1 x 9.6 x 12.3 cm cortical cyst lower pole right kidney and a 1.2 x 1.1 x 1.1 cm cortical cyst lower pole left kidney. Dictated by Caesar Mccray MD @ 09/13/2024 8:12:19 AM (Electronically Signed)
== END 2024-09-08 07:11 | disposition home or self-care (01) ==
LOC: US 07:11
PROVIDERS: PCP Physician Assistant Medical; Visit Provider Physician Assistant Medical
DX: I10 Essential (primary) hypertension (principal); N28.1 Cyst of kidney, acquired
CPT/HCPCS: 76775; 93975